=== PATIENT | female | born 1985 | race Caucasian/White ===

== ENCOUNTER 2017-07-21 18:53 | Emergency (ER) | payer SELFPAY ==
[~2017-07-21] VITALS: Ht 172.7 cm; Wt 55.9 kg
[2017-07-21 19:22] VITALS: BP 106/54
--- NOTE | 2017-07-21 20:10 | NUR ---
TO ER CHAIR E
--- NOTE | 2017-07-21 20:12 | NUR ---
PATIENT IS A 31 Y/O FEMALE WHO PRESENTS TO THE ED C/O FINGER PAIN. PT STATES, "I HURT MY HAND AND NOW IT'S NUMB." PT REPORTS 2/10 NUMB LEFT MIDDLE FINGER PAIN. CMS INTACT. NOTED SWELLING TO MIDDLE FINGER. PT DENIES CP, SOB, N/V/D. PT AAOX4, RR EVEN/UNLABORED. PT REPOSITIONED FOR COMFORT, PT SITTING IN CHAIR. ER MD DR. ROQUE NOTIFIED. WILL CONTINUE TO MONITOR. Addendum: 07/21/17 at 2119 by [email or web address] PATIENT IS A 31 Y/O FEMALE WHO PRESENTS TO THE ED C/O FINGER PAIN. PT STATES, "I HURT MY HAND AND NOW IT'S NUMB." PT REPORTS 2/10 NUMB RIGHT MIDDLE FINGER PAIN. CMS INTACT. NOTED SWELLING TO MIDDLE FINGER. PT DENIES CP, SOB, N/V/D. PT AAOX4, RR EVEN/UNLABORED. PT REPOSITIONED FOR COMFORT, PT SITTING IN CHAIR. ER MD DR. ROQUE NOTIFIED. WILL CONTINUE TO MONITOR.
[2017-07-21 21:50] VITALS: BP 115/62
--- NOTE | 2017-07-21 21:50 | NUR ---
Patient discharged with v/s stable. Written and verbal after care instructions given and explained. Patient alert, oriented and verbalized understanding of instructions. Ambulatory with steady gait. All questions addressed prior to discharge. ID band removed. Patient advised to follow up with PMD. Rx of IBUPROFEN 800MG given. Patient educated on indication of medication including possible reaction and side effects. Opportunity to ask questions provided and answered.
== END 2017-07-21 21:50 | disposition home or self-care (01) ==
LOC: MED 18:53
DX: S62.602A Fracture of unspecified phalanx of right middle finger, initial encounter for closed fracture (principal); W23.0XXA Caught, crushed, jammed, or pinched between moving objects, initial encounter; Y93.89 Activity, other specified; Y92.89 Other specified places as the place of occurrence of the external cause; Y99.8 Other external cause status; Z88.8 Allergy status to other drugs, medicaments and biological substances
CPT/HCPCS: 73130; 99284